=== PATIENT | male | born 1995 | race Caucasian/White ===

== ENCOUNTER → 2017-11-13 | Outpatient (CLI) | payer BC, OTHER ==
[~2017-11-13] MED LIST: ANTIBIOTIC; CIPR-344 PO; HYDR-4309 PO; IOPAMIDOL 76% 75 ML INFUS BTL 75 ML ONE; LOR5/325 PO; METH20TA33 PO; ONDA4TAB PO; PARO-46 PO; TRAZ100T31 PO
--- NOTE | 2017-11-13 16:40 | RADIOLOGY IMAGING REPORT ---
FACILITY: [facility] PATIENT NAME: Morteza Alves : 1995 MR: [id number] V: [id number] EXAM DATE: ORDERING PHYSICIAN: AMRITA LEIJA TECHNOLOGIST: [facility] Patient: Morteza Alves : 1995 Visit/Account:[id number] Date of Sevice: 11/13/2017 ABDOMEN/PELVIS W/WO CONTRAST HISTORY: Abdomen pain, testicular pain TECHNIQUE: Axial images acquired through the abdomen/pelvis both with and without IV contrast.. Tammi nal and sagittal reformatting also performed. Dose Lowering Technique One of the following dose optimization techniques was utilized in the performance of this exam: Autom ated exposure control; adjustment of the mA and/or kV according to the patient's size; or use of an i terative reconstruction technique. Specific details can be referenced in the facility's radiology C T exam operational policy. CONTRAST: 75 mL Isovue-370 COMPARISON: CT abdomen and pelvis December 29, 2014 FINDINGS: Visualized lung bases: Negative. Hepatobiliary: There appears to been a cholecystectomy Spleen: Negative. Adrenals: Negative. Pancreas: Negative. Kidneys ureters and bladder: There are prominent renal pelves bilaterally Genitalia: There is a bilobed cystic structure in the midline at the root of the penis measuring mirna roximately 2.7 cm in length 9 mm in height and 9 mm in width. This could represent an Cowper duct cy st although other cystic lesions not excluded. The prostate gland seminal vesicles appear slightly h eterogeneous GI: Negative. Vessels/spaces/nodes: Negative. Bones/soft tissues: Negative. Additional findings: None pertinent. IMPRESSION: There appears to been a cholecystectomy There are prominent renal pelves bilaterally although the ureters do not appear grossly dilated. The re is no demonstration of urolithiasis There is a bilobed cystic structure in the midline at the root of the penis measuring approximately 2 .7 cm in length, 9 mm in height and 9 mm in width. This could represent a Cowper duct cyst although other cystic lesions not excluded Report Dictated By: Sarah Beth Bowman MD at 11/13/2017 4:01 PM Report E-Signed By: Sarah Beth Bowman MD at 11/13/2017 4:35 PM WSN:[email or web address]
== END ==
LOC: US 14:35
PROVIDERS: ATTEND Family Medicine
DX: N48.89 Other specified disorders of penis (principal); Z90.49 Acquired absence of other specified parts of digestive tract
CPT/HCPCS: 74178; Q9967

== ENCOUNTER 2018-03-25 02:29 | Emergency (ER) | payer BC ==
[~2018-03-25 02:29] MED LIST changes: -HYDR-4309 PO; +HYDR-653 PO; -IOPAMIDOL 76% 75 ML INFUS BTL 75 ML ONE
--- NOTE | 2018-03-25 02:31 | ER Report ---
History and Physical Time Seen By MD: 02:31 HPI/ROS CHIEF COMPLAINT: Shoulder dislocation HISTORY OF PRESENT ILLNESS: Patient is a right-hand dominant 22-year-old male who presents to the emergency department with complaint of suspected left shoulder dislocation. Patient has had problems with recurring dislocations in the past and had surgery 2 years ago. Patient states that tonight he was trying to hide a Brittany gift from his girlfriend when he felt the shoulder come out. REVIEW OF SYSTEMS: Respiratory: No cough, no dyspnea. Cardiovascular: No chest pain, no palpitations. Gastrointestinal: No vomiting, no abdominal pain. Musculoskeletal: Left shoulder pain Allergies: Coded Allergies: citalopram (Verified Allergy, Severe, RESP PROBLEMS, 04/02/15) risperidone (Verified Adverse Reaction, Intermediate, DIARRHEA, 04/02/15) Home Meds Active Scripts Oxycodone Hcl/Acetaminophen (PERCOCET 5-325 MG TABLET) 1 Each Tablet, 1 EACH PO Q4H PRN for PAIN, #12 TAB 0 Refills Prov:OMAR BENAVIDES MD 03/25/18 Hydrocodone Bit/Acetaminophen (HYDROCODON-ACETAMINOPHEN 5-325) 1 Each Tablet, 1 EACH PO Q4-6H PRN for PAIN, #12 TAB 0 Refills TAKE ONE TABLET BY MOUTH EVERY 4-6 HOURS NEEDED FOR PAIN Prov:OMAR BENAVIDES MD 08/12/16 Hydrocodone Bit/Acetaminophen (NORCO 5-325 TABLET) 1 Each Tablet, 1 EACH PO Q4H PRN for PAIN, #15 Prov:ASAD LOGAN DO 04/02/15 Past Medical/Surgical History History of recurring shoulder dislocations Hx Smoking: No Smoking Status: Never Smoker Hx Substance Use Disorder: Yes (WEED) Hx Alcohol Use: No Constitutional Physical Exam General Appearance: The patient is alert, has no immediate need for airway protection and no current signs of toxicity. Respiratory: Chest is non tender, lungs are clear to auscultation. Cardiac: regular rate and rhythm Gastrointestinal: Abdomen is soft and non tender, no masses, bowel sounds nor mal. Musculoskeletal: Neck: Neck is supple and non tender. Examination of the left shoulder reveals obvious step-off deformity consistent with likely dislocation. Sensation is intact over the deltoid area. Skin: No rashes or lesions. Medical Decision Making EKG/Imaging Imaging Initial x-ray shows anterior shoulder dislocation on the left arm. There is a Hill-Sachs deformity noted which was present on prior x-ray from 2017. Postreduction x-ray shows realignment of the glenohumeral joint. ED Course/Re-evaluation ED Course 03/25/2018 2:40:39 am patient was suspected left shoulder dislocation. We'll obtain x-ray. I will place IV give IV fentanyl, Zofran, Ativan for some pain relief and anxiolysis. Plan will be procedural sedation with ketafol to reduce the shoulder. 03/25/2018 3:22:03 am Procedure: Procedural sedation. A pre-sedation evaluation was completed on the patient at 0250. Patient is an appropriate candidate for procedural sedation. The risks of the sedation were discussed with the patient. A time out was completed. The patient was sedated with a total of 50 mg of ketamine and 50 mg propofol. The patient was monitored with continuous pulse oximetry and quality assurance monitor final. There were no complications and no significant hypoxemia. I remained at the bedside for the sedation. The total time I spent in the procedural sedation was 30 minutes. Procedure: Dislocation reduction. The left shoulder was reduced in the usual fashion without complications. Post reduction the patient's neurovascular exam is normal. Post reduction x-ray demonstrates reduction of the joint to the anatomic position. The procedure was performed by myself. Decision to Disposition Date: Mar 25, 2018 Decision to Disposition Time: 04:30 Depart Departure Latest Vital Signs Impression: Primary Impression: Shoulder dislocation, recurrent Condition: Improved Disposition: HOME OR SELF-CARE Referrals: [facility] 1 Week New Scripts Oxycodone Hcl/Acetaminophen (PERCOCET 5-325 MG TABLET) 1 Each Tablet 1 EACH PO Q4H PRN for PAIN, #12 TAB 0 Refills Prov: OMAR BENAVIDES MD 03/25/18 Patient Instructions: Shoulder Dislocation (DC), Shoulder Dislocation Exercises (GEN) Problem Qualifiers Primary Impression: Shoulder dislocation, recurrent Laterality: left Qualified Codes: M24.412 - Recurrent dislocation, left shoulder OMAR BENAVIDES MD Mar 25, 2018 02:31
[2018-03-25] MEDS ORDERED: LORazepam 2 MG/ML VIAL IVP ONE (02:40)
[2018-03-25] MEDS ORDERED: fentaNYL CITR 100 MCG/2 ML AMP IVP ONE (02:40)
[2018-03-25] MEDS ORDERED: PROPOFOL EMUL 10MG/ML 20 ML VL IVP ONE (02:40)
[2018-03-25] MEDS ORDERED: KETAMINE HCL 500 MG/5 ML VIAL IVP ONE (02:40)
[2018-03-25] MEDS ORDERED: ONDANSETRON 4 MG/2 ML VIAL IVP ONE (02:40)
[2018-03-25] MEDS ORDERED: NS(*) 0.9% 1000 ML BAG 1,000 ML IV ONE (02:40)
--- NOTE | 2018-03-25 03:21 | RADIOLOGY IMAGING REPORT ---
FACILITY: [facility] PATIENT NAME: Morteza Alves : 1995 MR: [id number] V: [id number] EXAM DATE: ORDERING PHYSICIAN: OMAR BENAVIDES TECHNOLOGIST: Location: [facility] Patient: Morteza Alves : 1995 Visit/Account:[id number] Date of Sevice: 03/25/2018 SHOULDER MIN 2 VIEWS LEFT COMPARISONS: None. ADDITIONAL PERTINENT HISTORY: Left shoulder pain FINDINGS: Osseous structures: Negative. Joint spaces: Anterior and medial displacement of the humeral head in relation to the glenoid. Surrounding soft tissues: Negative. IMPRESSION: 1. Anterior dislocation at the left glenohumeral joint. 2. No evidence of underlying bony fracture. Report Dictated By: Juan M Little MD at 03/25/2018 3:08 AM Report E-Signed By: Juan M Little MD at 03/25/2018 3:10 AM WSN:[id number]
--- NOTE | 2018-03-25 03:37 | RADIOLOGY IMAGING REPORT ---
FACILITY: [facility] [place] PATIENT NAME: Morteza Alves : 1995 MR: [id number] V: [id number] EXAM DATE: [id number] ORDERING PHYSICIAN: OMAR BENAVIDES TECHNOLOGIST: Location[place] [facility] [place] Patient: Morteza Alves : 1995 Visit/Account:[id number] Date of Sevice: 03/25/2018 INDICATION: post reduction EXAM DATE: 03/25/2018 3:20 AM COMPARISON: Earlier today and previous. FINDINGS: Single view of the left shoulder. Mineralization is normal. Glenohumeral alignment now appears carlos eduardo l. Redemonstration of previously seen Hill-Sachs fracture of the humeral head. Soft tissues are unre markable. IMPRESSION: Suspected normal post reduction alignment of the left shoulder on this single view. Hil l-Sachs fracture of the left humeral head as seen on previous examinations. Report Dictated By: Lobo Mccabe MD at 03/25/2018 3:31 AM Report E-Signed By: Lobo Mccabe MD at 03/25/2018 3:33 AM WSN:[id number]
[2018-03-25 04:05] VITALS: BP 122/84
[2018-03-25] MEDS ORDERED: oxyCODONE/ACETAMIN 5/325MG TH 2 TAB/BOTTLE PO ONE (04:15)
[2018-03-25] MEDS ORDERED: OXYC-865 PO (04:15)
== END 2018-03-25 04:16 | disposition home or self-care (01) ==
LOC: ER 02:33
DX: M24.412 Recurrent dislocation, left shoulder (principal)
CPT/HCPCS: 23650; 73020; 73030; 96361; 96374; 96375; 99152; 99153; 99285; A4565; J2060; J2405; J2704; J3010; J7030